=== PATIENT | female | born 1970 | race Caucasian/White ===

== ENCOUNTER 2021-06-11 18:00 | Inpatient (IN) ==
[2021-06-11] MEDS ORDERED: cefTRIAXone SODIUM 2,000 MG/70 ML BAG IV STA (18:50)
[2021-06-11] MEDS ORDERED: SODIUM CHLORIDE 0.9% 1000ML 1,000 ML IV ONE (18:50)
--- NOTE | 2021-06-11 19:08 | Emergency Department Note ---
Impression & Plan Tenosynovitis of finger, Cellulitis of right middle finger, Open wound of finger with complication ED Provider Note CHIEF COMPLAINT: Right middle finger infection HISTORY OF PRESENTING ILLNESS: This is a 51-year-old female who presents to the emergency department by private vehicle with concern for worsening infection of her right middle finger. The patient was evaluated in the emergency department yesterday for the same injury and was started on antibiotics. Patient states that she slipped on ice and cut the finger on a tin can while taking out the recycling about 3 days ago. She notes that she was initially soaking the finger and Epson salts, but started to notice swelling and pain yesterday and was evaluated for this. She states she has been taking the Keflex and Bactrim as prescribed but she feels that the finger is "getting worse by the hour." She states that the pain and swelling have significantly increased, the redness seems to be spreading up the finger, and she is unable to bend or straighten the finger normally, which she previously was able to do. She currently rates her pain 8/10. She has taken tramadol for the pain with some improvement. She notes that there has been some pus discharge from the wound. She denies any fevers or chills. She is right-hand dominant. She denies taking any blood thinner medications. She reports that she last ate solid food today around 1:30 PM and had a bottle of water around 5 PM. The patient does note that her te tanus is not up-to-date and she previously refused tetanus vaccination yesterday. The patient notes that her tetanus is not up-to-date, and she declines tetanus booster at this time. REVIEW OF SYSTEMS: A complete 10 point review of systems was reviewed with the patient with pertinent positives and negatives as per history of present illness. All else were negative. PAST MEDICAL HISTORY: Bipolar disorder, anxiety, depression, fibromyalgia, migraines, history of lumbar spine surgery SOCIAL HISTORY: Lives at home, she is a current everyday smoker ALLERGIES: No known allergies PHYSICAL EXAM: CONSTITUTIONAL: Pleasant and cooperative. Nontoxic-appearing and in no acute distress. Well appearing and well nourished. HEENT: Normocephalic, atraumatic. PERRL, EOMI. NECK: Supple, full active range of motion without discomfort. RESPIRATORY: Clear to auscultation bilaterally with no wheezing, crackles, rhonchi or stridor. Equal expansion bilaterally. CARDIOVASCULAR: Regular rate and rhythm with no murmurs, rubs or gallops. Normal peripheral perfusion. No edema. GASTROINTESTINAL: Soft, nontender, nondistended. No palpable masses or HSM. Bowel sounds present in all quadrants. MUSCULOSKELETAL: There is significant diffuse swelling and erythema noted to the right middle finger. Most swollen and tender around the right DIP joint which is in a position of mild to moderate flexion and the patient is unable to straighten it. There is an open wound noted on the dorsal aspect overlying the DIP joint which measures approximately 1.5 cm in length. There is swelling and fluctuance over both the DIP and PIP joints. Patient has minimal active flexion and is unable to extend the finger of the finger on exam. Increased pain with passive flexion and extension. No lymphangitic streaking. INTEGUMENTARY: No rash or other significant dermatologic conditions noted. NEUROLOGIC: Alert and oriented X 4 with normal affect. Normal strength and sensation in all 4 extremities. Normal speech. Normal gait observed. ED COURSE AND MEDICAL DECISION MAKING: CC: Patient presenting with complaint of right finger infection DIFFERENTIAL DIAGNOSIS: Includes, but not limited to cellulitis, abscess, wound infection, MRSA, tenosynovitis, osteomyelitis, retained foreign body, sepsis, among others. INTERPRETATION OF LABS: No leukocytosis, no anemia, normal platelets, no significant electrolyte abnormalities, normal renal function, normal liver enzymes. ESR within normal limits, CRP significantly elevated. MEDICATION RECONCILIATION: I attest that I have personally reviewed the patient's current medication list. INITIAL VITAL SIGNS REVIEW: I reviewed the patient's initial vital signs and interpret them as follows: T: Afebrile; BP: Mildly hypertensive; HR: Within normal limits; RR: Within normal limits; Pulse Ox: Within normal limits on room air. MDM SUMMARY: Patient was evaluated at bedside, history and physical exam performed. Patient is alert and oriented, in no acute distress, resting calmly in stretcher. She is afebrile and nontoxic-appearing and does not appear to be in significant pain. There is significant circumferential swelling and erythema of the right middle finger, most swollen over the distal portion of the finger and the DIP joint with the finger and partially flexed position. Patient has significant pain with passive flexion or extension of the finger. There is an open wound over the DIP joint on the dorsal aspect concerning for extensor and tendon involvement. Orders were placed for labs including inflammatory markers, IV fluid bolus for hydration, IV ceftriaxone 2 g for antibiotic coverage, and x-ray of the right middle finger. Patient declined anything for pain at this time. The patient reports that her tetanus is not up-to-date, and she declines tetanus booster today. Patient discussed with Dr. Mandel, who agrees with my assessment, plan, and disposition. Labs and imaging reviewed, no leukocytosis, but CRP is significantly elevated. X-ray shows progressive worsening of soft tissue swelling with no evidence of underlying osteomyelitis. Given the rapid progression of the patient's finger infection in spite of being treated with antibiotics, I did feel that she warranted orthopedic evaluation. I spoke on the phone with Dr. Weems and Dr. Leija, they both felt that the patient should be transferred to a tertiary care center, as there is no hand specialist on this weekend and they felt the patient would benefit from a hand specialist for definitive management. I spoke with the patient regarding my discussion with the orthopedic surgeons and she prefers to be transferred to [facility] in [place]. I spoke on the phone with Dr. Crook, orthopedic surgeon at [facility] in [place], she felt that transfer of this patient would be an appropriate and that the patient should be able to be managed by our surgeons here. She was happy to speak with her orthopedic surgeon to discuss why they felt the patient needed to be transferred. I spoke again on the phone with Dr. Weems, who plans to admit the patient and his fellow, Dr. Hilton, is coming to evaluate the patient and do the admission. He did request that I add on IV Zosyn, which was ordered, and we are keeping the patient n.p.o. for now. Patient reports that her pain is worsening and she would like something for pain now, she was ordered IV morphine. The patient has otherwise remained afebrile and nontoxic-appearing and was stable at the time of admission. The chart was completed utilizing [employer] Speech voice recognition software. Grammatical errors, random word insertions, pronoun errors, and incomplete sentences are an occasional consequence of this system due to software limitations, ambient noise, and hardware issues. Any formal questions or concerns about the content, text, or information contained within the body of this dictation should be directly addressed to the nurse practitioner for clarification. Past Med/Surg History Medical History Anxiety and depression Back pain with history of spinal surgery Bipolar 1 disorder Bruxism (teeth grinding) Bulging discs Chronic low back pain Chronic SI joint pain Degenerative disc disease Fibromyalgia History of migraine OCD (obsessive compulsive disorder) Osteoarthritis Osteoporosis Palpitations PTSD (post-traumatic stress disorder) Radiculitis Witnessed apneic spells witnessed sleep apnea but pt has not been tested Surgical History History of back surgery x 2 History of x2 History of D&C History of tubal ligation Family History Other No family history of adverse response to anesthesia Social History Smoking Status: Current every day smoker Tobacco Type: Cigarettes Cigarettes Per Day: 1 ppd; Second Hand Exposure: No; Hx Alcohol Use: Yes Alcohol type: beer Hx Substance Use: No Preferred Language: Puerto Rican Communication Ability: Effective 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 Beliefs That Will Affect Care: None Current Living Situation: Alone Feels Safe at Home: Yes Assistive Devices: None Allergies Allergies Allergy/AdvReac Type Severity Reaction Status Date / Time No Known Allergies Allergy Unverified 03/25/21 09:42 Home Meds Home Medications Medication Instructions Recorded Confirmed ibuprofen 200 mg tablet 200 mg PO Q6H PRN 12/08/20 03/25/21 baclofen 10 mg tablet 10 mg PO TID PRN 02/26/21 03/25/21 duloxetine 60 mg capsule,delayed 60 mg PO QAM 02/26/21 03/25/21 release (Cymbalta) gabapentin 300 mg capsule 600 mg PO TID cap 03/25/21 03/25/21 garlic 300 mg capsule 300 mg PO DAILY 03/25/21 03/25/21 omega-3 fatty acids 1,000 mg 1,000 mg PO DAILY 03/25/21 03/25/21 capsule (Fish Oil Concentrate) vitamin E 200 unit capsule 200 unit PO DAILY 03/25/21 03/25/21 Previous Rx's Medication Instructions Recorded cyclobenzaprine 10 mg tablet 10 mg PO TID PRN #10 tab 12/08/20 cephalexin 500 mg tablet 500 mg PO Q6H 10 Days #40 tab 06/10/21 sulfamethoxazole 800 1 tab PO Q12H #20 tab 06/10/21 mg-trimethoprim 160 mg tablet (Bactrim DS) tramadol 50 mg tablet 25 mg PO Q8H PRN #5 tab 06/10/21 Results & Data (ED) Vital Signs Vital Signs - 24 hr 06/11/21 18:12 06/11/21 18:32 06/11/21 20:50 Temperature 36.3 C L Temperature Source Temporal Artery Scan Pulse Rate 93 H Pulse Rate [Finger] 80 Respiratory Rate 18 16 Respiratory Depth Normal Blood Pressure 145/88 H Blood Pressure Mean 107 Blood Pressure Position Sitting Pulse Oximetry 94 95 Oxygen Delivery Method Room Air Room Air Sepsis Recent Fever Within 48 Hours No Sepsis New/Unexplained Change in Mental Status No Sepsis Action Taken by Nursing No Action Required Laboratory Data Result diagrams: 06/11/21 19:07 06/11/21 19:07 Lab Results 06/11/21 06/11/21 06/11/21 Range/Units 19:07 19:07 19:07 WBC 8.61 (4.8-10.8) K/uL RBC 3.90 L (4.2-5.4) M/uL Hgb 12.4 (12.0-16.0) g/dL Hct 36.6 L (37-47) % MCV 93.8 (80-100) fL MCH 31.8 (25-34) pg MCHC 33.9 (32-36) g/dL RDW Std Deviation 45.0 (36.4-46.3) fL RDW Coeff of Medardo 13.1 (11.5-14.5) % Plt Count 284 (130-400) K/uL MPV 9.1 (7.4-10.4) fL Immature Gran % (Auto) 0.1 % Neut % (Auto) 61.7 % Lymph % (Auto) 28.7 % Grady % (Auto) 7.0 % Eos % (Auto) 2.3 % Baso % (Auto) 0.2 % Neut # (Auto) 5.31 (1.4-6.5) K/uL Lymph # (Auto) 2.47 (1.2-3.4) K/uL Grady # (Auto) 0.60 H (0.11-0.59) K/uL Eos # (Auto) 0.20 (0-0.5) K/uL Baso # (Auto) 0.02 (0-0.2) K/uL Immature Gran # (Auto) 0.01 (0.00-0.02) K/uL ESR 24 (0-30) mm/hr Sodium (136-145) mmol/L Potassium (3.5-5.1) mmol/L Chloride (98-107) mmol/L Carbon Dioxide (21-32) mmol/L Anion Gap (3-11) BUN (6-23) mg/dl Creatinine (0.6-1.2) mg/dl Est Cr Clr Drug Dosing ml/min Est GFR ( Amer) ml/min Est GFR (Non-Af Amer) ml/min BUN/Creatinine Ratio (10-20) Glucose (70-99(Fasting)) mg/dl Calcium (8.5-10.1) mg/dl Total Bilirubin (0.2-1.0) mg/dl AST (13-39) U/L ALT (7-52) U/L Alkaline Phosphatase (34-104) U/L C-Reactive Protein 10.24 H (0-0.5) mg/dl Total Protein (6.0-8.3) gm/dl Albumin (3.4-5.0) gm/dl Globulin (2.5-4.0) gm/dl Albumin/Globulin Ratio (0.9-2) 06/11/21 Range/Units 19:07 WBC (4.8-10.8) K/uL RBC (4.2-5.4) M/uL Hgb (12.0-16.0) g/dL Hct (37-47) % MCV (80-100) fL MCH (25-34) pg MCHC (32-36) g/dL RDW Std Deviation (36.4-46.3) fL RDW Coeff of Medardo (11.5-14.5) % Plt Count (130-400) K/uL MPV (7.4-10.4) fL Immature Gran % (Auto) % Neut % (Auto) % Lymph % (Auto) % Grady % (Auto) % Eos % (Auto) % Baso % (Auto) % Neut # (Auto) (1.4-6.5) K/uL Lymph # (Auto) (1.2-3.4) K/uL Grady # (Auto) (0.11-0.59) K/uL Eos # (Auto) (0-0.5) K/uL Baso # (Auto) (0-0.2) K/uL Immature Gran # (Auto) (0.00-0.02) K/uL ESR (0-30) mm/hr Sodium 137 (136-145) mmol/L Potassium 3.6 (3.5-5.1) mmol/L Chloride 105 (98-107) mmol/L Carbon Dioxide 25 (21-32) mmol/L Anion Gap 7 (3-11) BUN 10 (6-23) mg/dl Creatinine 0.75 (0.6-1.2) mg/dl Est Cr Clr Drug Dosing 74.4 ml/min Est GFR ( Amer) 107.7 ml/min Est GFR (Non-Af Amer) 92.9 ml/min BUN/Creatinine Ratio 13.3 (10-20) Glucose 73 (70-99(Fasting)) mg/dl Calcium 9.0 (8.5-10.1) mg/dl Total Bilirubin 0.4 (0.2-1.0) mg/dl AST 31 (13-39) U/L ALT 32 (7-52) U/L Alkaline Phosphatase 74 (34-104) U/L C-Reactive Protein (0-0.5) mg/dl Total Protein 7.1 (6.0-8.3) gm/dl Albumin 4.1 (3.4-5.0) gm/dl Globulin 3.0 (2.5-4.0) gm/dl Albumin/Globulin Ratio 1.4 (0.9-2) Administered Medications Discontinued Medications Ceftriaxone Sodium (Rocephin) 2,000 mg in 70 mls @ 140 mls/hr IV NOW STA Stop: 06/11/21 19:19 Last Infusion: 06/11/21 20:05 Dose: 0 mls/hr Documented by: [id number] Admin: 06/11/21 19:13 Dose: 140 mls/hr Documented by: [id number] Sodium Chloride (Nss 1000ml) 1,000 mls @ 999 mls/hr IV .Q1H1M ONE Stop: 06/11/21 19:50 Last Infusion: 06/11/21 20:05 Dose: 0 mls/hr Documented by: [id number] Admin: 06/11/21 19:14 Dose: 999 mls/hr Documented by: [id number] Piperacillin Sod/Tazobactam Sod (Zosyn) 4.5 gm in 120 mls @ 240 mls/hr IV NOW ONE Stop: 06/11/21 21:00 Last Admin: 06/11/21 20:48 Dose: 240 mls/hr Documented by: [id number] Morphine Sulfate (Morphine Sulfate 4 Mg/Ml 1 Ml Carp\\Vial) 4 mg IV NOW STA Stop: 06/11/21 20:41 Last Admin: 06/11/21 20:48 Dose: 4 mg Documented by: [id number] Ondansetron HCl (Ondansetron Inj 2 Mg/Ml 2 Ml Vial) 4 mg IV NOW STA Stop: 06/11/21 20:41 Last Admin: 06/11/21 20:48 Dose: 4 mg Documented by: [id number] Imaging Data Radiologist's Impression: Finger X-Ray 06/11/21 18:50 XR finger(s) RT min 2V HISTORY: 51 years-old Female right middle finger infection acute pain with soft tissue swelling of the right third finger COMPARISON: Finger radiographs 06/10/2021 TECHNIQUE: 3 views of the right third finger FINDINGS: There is progressively worsened soft tissue swelling of the third finger. Skin irregularity of the distal finger suggests laceration. Mild flexion of the DIP joint. No acute fracture, dislocation or opaque foreign body. Mild osteoarthritis. IMPRESSION: Progressively worsened soft tissue swelling without acute osseous abnormality. ACT 112: Negative or not required by law. The above report was generated using voice recognition software. It may contain grammatical, syntax or spelling errors. Electronically signed by: Julio White M.D. 06/11/2021 7:27 PM Discharge Plan Visit Data Chief Complaint: Wound Stated Complaint: LAC ON MIDDLE FINGER ED Provider: Terrance Mandel ED Midlevel Provider: Mishel Joiner Discharge Problem: Tenosynovitis of finger, Cellulitis of right middle finger, Open wound of finger with complication Patient Disposition: Being Evaluated by Surgeon Condition: Good Forms Stand Alone Forms: [employer] Prescriptions Prescriptions: No Action omega-3 fatty acids [Fish Oil Concentrate] 1,000 mg capsule 1,000 mg PO DAILY RF: 0 vitamin E 200 unit capsule 200 unit PO DAILY RF: 0 garlic 300 mg capsule 300 mg PO DAILY RF: 0 cephalexin 500 mg tablet 500 mg PO Q6H 10 Days Qty: 40 RF: 0 sulfamethoxazole-trimethoprim [Bactrim DS] 800-160 mg tablet 1 tab PO Q12H Qty: 20 RF: 0 tramadol 50 mg tablet 25 mg PO Q8H PRN (Reason: pain) Qty: 5 RF: 0 ibuprofen 200 mg Tablet 200 mg PO Q6H PRN (Reason: Pain) RF: 0 cyclobenzaprine 10 mg tablet 10 mg PO TID PRN (Reason: muscle spasm) Qty: 10 RF: 0 gabapentin 300 mg capsule 600 mg PO TID RF: 0 baclofen 10 mg Tablet 10 mg PO TID PRN (Reason: Muscle Spasm) RF: 0 duloxetine [Cymbalta] 60 mg Capsule,Delayed Release(Dr/Ec) 60 mg PO QAM RF: 0 Referrals Referrals: Adriana Osullivan PA-C [Primary Care Provider] - Discharge Problem: Open wound of finger with complication Qualifiers: Encounter type: initial encounter Qualified Code(s): S61.209A - Unspecified open wound of unspecified finger without damage to nail, initial encounter
[2021-06-11 19:18] LABS: Basophils # (auto) 0.02 K/uL (0-0.2); Basophils % (auto) 0.2 %; Eosinophils % (auto) 2.3 %; Hematocrit (blood only) 36.6 % (37-47); Hemoglobin 12.4 g/dL (12.0-16.0); Immature Granulocytes # (auto) 0.01 K/uL (0.00-0.02); Immature Granulocytes % (auto) 0.1 %; Lymphocytes # (auto) 2.47 K/uL (1.2-3.4); Lymphocytes % (auto) 28.7 %; Mean Corpuscular Hemoglobin 31.8 pg (25-34); Mean Corpuscular Hgb Conc 33.9 g/dL (32-36); Mean Corpuscular Volume 93.8 fL (80-100); Mean Platelet Volume 9.1 fL (7.4-10.4); Neutrophils # (auto) 5.31 K/uL (1.4-6.5); Neutrophils % (auto) 61.7 %; Platelet Count 284 K/uL (130-400); RDW Coefficient of Variation 13.1 % (11.5-14.5); White Blood Count 8.61 K/uL (4.8-10.8)
--- NOTE | 2021-06-11 19:28 | XRay Report ---
XR finger(s) RT min 2V HISTORY: 51 years-old Female right middle finger infection acute pain with soft tissue swelling of t he right third finger COMPARISON: Finger radiographs 06/10/2021 TECHNIQUE: 3 views of the right third finger FINDINGS: There is progressively worsened soft tissue swelling of the third finger. Skin irregularity of the di stal finger suggests laceration. Mild flexion of the DIP joint. No acute fracture, dislocation or opa que foreign body. Mild osteoarthritis. IMPRESSION: Progressively worsened soft tissue swelling without acute osseous abnormality. ACT 112: Negative or not required by law. The above report was generated using voice recognition software. It may contain grammatical, syntax o r spelling errors. Electronically signed by: Julio White M.D. 06/11/2021 7:27 PM
[2021-06-11 19:56] LABS: Albumin Globulin Ratio 1.4 (0.9-2); Albumin Level 4.1 gm/dl (3.4-5.0); BUN Creatinine Ratio 13.3 (10-20); Bilirubin,Total 0.4 mg/dl (0.2-1.0); Creatinine Clr Calc Pharmacy 74.4 ml/min; Est GFR (African American) 107.7 ml/min; Est GFR (Non-African American) 92.9 ml/min; Potassium 3.6 mmol/L (3.5-5.1); Total Protein 7.1 gm/dl (6.0-8.3)
[2021-06-11] MEDS ORDERED: PIPERACILLIN/TAZOBACTAM 4.5 GM/120 ML BAG IV ONE (20:31)
[2021-06-11] MEDS ORDERED: PIPERACILL/TAZOBAC CONSULT ACTIVE PRN (20:31)
[2021-06-11] MEDS ORDERED: MoRPHine SULFATE 4 MG/ML 1 ML CARP\\VIAL IV STA (20:40)
[2021-06-11] MEDS ORDERED: ONDANSETRON INJ 2 MG/ML 2 ML VIAL IV STA (20:40)
[2021-06-11] MEDS ORDERED: VANCOMYCIN CONSULT ACTIVE PRN (21:12)
[2021-06-11] MEDS ORDERED: VANCOMYCIN HCL 1,250 MG in SODIUM CHLORIDE 0.9% 500 ML IV ONE (21:12)
--- NOTE | 2021-06-11 21:15 | Emergency Department Note ---
ED Visit Note Physician Evaluation Note: Patient was seen in conjunction with the physician clinical data assistant. Please see the physician clinical data assistant note for full details of the visit. I have personally evaluated and examined this patient. I performed a substantive portion of the patient visit including medical decision making and interpretation of diagnostic studies. On my examination the patient is in no acute distress, she does present with fusiform swelling of the third digit of the right hand, she experienced an injury to the distal aspect of the digit 2 nights ago. Orthopedics was consulted as there is concern for tenosynovitis, plan at this point will be to admit the patient to the orthopedic service of Dr. Bunch for IV antibiotics and washout procedure tomorrow morning. Patient was given IV ceftriaxone, IV Zosyn, and IV vancomycin here in the ED. She was started on maintenance fluids and made n.p.o. Preliminary plan will be for washout/operative procedure tomorrow morning. Patient was admitted in stable condition. I agree with assessment and plan of MAYANK Elizabeth DO . : Open wound of finger with complication Qualifiers: Encounter type: initial encounter Qualified Code(s): S61.209A - Unspecified open wound of unspecified finger without damage to nail, initial encounter
--- NOTE | 2021-06-11 21:54 | Orthopedic Consultation ---
Date of Consultation June 11, 2021 History of Present Illness Reason for Consultation: Right middle finger infection Allergies Allergy/AdvReac Type Severity Reaction Status Date / Time No Known Allergies Allergy Unverified 03/25/21 09:42 Home Medications Medication Instructions Recorded Confirmed Type cyclobenzaprine 10 mg tablet 10 mg PO TID PRN #10 tab 12/08/20 03/25/21 Rx ibuprofen 200 mg tablet 200 mg PO Q6H PRN 12/08/20 03/25/21 History baclofen 10 mg tablet 10 mg PO TID PRN 02/26/21 03/25/21 History duloxetine 60 mg capsule,delayed 60 mg PO QAM 02/26/21 03/25/21 History release (Cymbalta) gabapentin 300 mg capsule 600 mg PO TID cap 03/25/21 03/25/21 History garlic 300 mg capsule 300 mg PO DAILY 03/25/21 03/25/21 History omega-3 fatty acids 1,000 mg 1,000 mg PO DAILY 03/25/21 03/25/21 History capsule (Fish Oil Concentrate) vitamin E 200 unit capsule 200 unit PO DAILY 03/25/21 03/25/21 History cephalexin 500 mg tablet 500 mg PO Q6H 10 Days #40 tab 06/10/21 Rx sulfamethoxazole 800 1 tab PO Q12H #20 tab 06/10/21 Rx mg-trimethoprim 160 mg tablet (Bactrim DS) tramadol 50 mg tablet 25 mg PO Q8H PRN #5 tab 06/10/21 Rx Patient History Medical History Anxiety and depression Back pain with history of spinal surgery Bipolar 1 disorder Bruxism (teeth grinding) Bulging discs Chronic low back pain Chronic SI joint pain Degenerative disc disease Fibromyalgia History of migraine OCD (obsessive compulsive disorder) Osteoarthritis Osteoporosis Palpitations PTSD (post-traumatic stress disorder) Radiculitis Witnessed apneic spells witnessed sleep apnea but pt has not been tested Surgical History History of back surgery x 2 History of x2 History of D&C History of tubal ligation Family History Other No family history of adverse response to anesthesia Social History Smoking Status: Current every day smoker Tobacco Type: Cigarettes Cigarettes Per Day: 1 ppd; Second Hand Exposure: No; Hx Alcohol Use: Yes Alcohol type: beer Hx Substance Use: No Preferred Language: Sami Communication Ability: Effective 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
[2021-06-11] MEDS ORDERED: SODIUM CHLORIDE 0.9% 1000ML 1,000 ML IV SCH (22:00)
--- NOTE | 2021-06-11 22:17 | Orthopedic Consultation ---
Date of Consultation June 11, 2021 Assessment & Plan (1) Open wound of finger with complication: I discussed with the patient all therapeutical options considering the worsening of the clinical situation and we agreed for the following plan. She will be admitted in the hospital and she will start IV ampicillin/sulbactam. She will be NPO from midnight and we will proceed with surgical debridement tomorrow morning (Incision and Drainage Right Middle Finger). Supervising Physician Co-Signing Physician Notes I saw and examined patient and agree with above note. History of Present Illness Reason for Consultation: Right middle finger infection Attending Physician: Dr. Weems History of Present Illness Mindy is a pleasant 51-year-old female who presents to the ED for a worsening infection of her right middle finger. The patient was evaluated in the emergency department yesterday for the same injury and was started on antibiotics. She slipped on ice and cut the finger on a tin can about 3 days ago. After 1 day she started to notice swelling and pain that became worst over the next hours. For this reason she went to the ED yesterday. She has been taking the Keflex and Bactrim as prescribed but she feels that the finger is ge tting worse. She states that the pain, swelling and redness have significantly increased, and she is unable to bend or straighten the finger normally, which she previously was able to do. She currently rates her pain 8/10. She has taken tramadol for the pain with some improvement. She denies any fevers or chills. She is right-hand dominant. She denies taking any blood thinner medications. The patient does note that her tetanus is not up-to-date and she previously refused tetanus vaccination yesterday. Allergies Allergy/AdvReac Type Severity Reaction Status Date / Time No Known Allergies Allergy Unverified 03/25/21 09:42 Home Medications Medication Instructions Recorded Confirmed Type cyclobenzaprine 10 mg tablet 10 mg PO TID PRN #10 tab 12/08/20 03/25/21 Rx ibuprofen 200 mg tablet 200 mg PO Q6H PRN 12/08/20 03/25/21 History baclofen 10 mg tablet 10 mg PO TID PRN 02/26/21 03/25/21 History duloxetine 60 mg capsule,delayed 60 mg PO QAM 02/26/21 03/25/21 History release (Cymbalta) gabapentin 300 mg capsule 600 mg PO TID cap 03/25/21 03/25/21 History garlic 300 mg capsule 300 mg PO DAILY 03/25/21 03/25/21 History omega-3 fatty acids 1,000 mg 1,000 mg PO DAILY 03/25/21 03/25/21 History capsule (Fish Oil Concentrate) vitamin E 200 unit capsule 200 unit PO DAILY 03/25/21 03/25/21 History cephalexin 500 mg tablet 500 mg PO Q6H 10 Days #40 tab 06/10/21 Rx sulfamethoxazole 800 1 tab PO Q12H #20 tab 06/10/21 Rx mg-trimethoprim 160 mg tablet (Bactrim DS) tramadol 50 mg tablet 25 mg PO Q8H PRN #5 tab 06/10/21 Rx Patient History Medical History Anxiety and depression Back pain with history of spinal surgery Bipolar 1 disorder Bruxism (teeth grinding) Bulging discs Chronic low back pain Chronic SI joint pain Degenerative disc disease Fibromyalgia History of migraine OCD (obsessive compulsive disorder) Osteoarthritis Osteoporosis Palpitations PTSD (post-traumatic stress disorder) Radiculitis Witnessed apneic spells witnessed sleep apnea but pt has not been tested Surgical History History of back surgery x 2 History of x2 History of D&C History of tubal ligation Family History Other No family history of adverse response to anesthesia Social History Smoking Status: Current every day smoker Tobacco Type: Cigarettes Cigarettes Per Day: 5; Second Hand Exposure: No; Do You Dip or Chew Tobacco: No; Tobacco Cessation Education Requested by Patient: No Hx Alcohol Use: Yes Alcohol type: beer Hx Substance Use: No Preferred Language: Turkmen Communication Ability: Effective Commissary Clerk Required: No Beliefs That Will Affect Care: None Current Living Situation: Alone Feels Safe at Home: Yes Safety Concerns: Feels Safe At This Time Assistive Devices: None Physical Exam Musculoskeletal: Right hand: Diffuse swelling and erythema to the right middle finger starting 2 cm proximal to the DIP joint. 1,5 cm open wound noted on the dorsal aspect of the DIP joint with no exposure of tendon or bone. 20 degrees of flexion contrac ture of the DIP joint. Limited ROM due to the swelling and pain. Sensation of the middle figner intact. Good capillary refill. Results & Data ([facility]) Vital Signs (Past 12 Hours) Vital Signs Temp Pulse Pulse Resp BP Pulse Ox 06/11/21 20:50 80 95 06/11/21 18:32 16 06/11/21 18:12 36.3 C L 93 H 18 145/88 H 94 (1) Open wound of finger with complication Encounter type: initial encounter Qualified Code(s): S61.209A - Unspecified open wound of unspecified finger without damage to nail, initial encounter
[2021-06-11] MEDS ORDERED: oxyCODONE/ACETAMINOPHEN 5mg/325mg TAB PO PRN (22:22)
[2021-06-11] MEDS ORDERED: ONDANSETRON INJ 2 MG/ML 2 ML VIAL IV PRN (22:22)
[2021-06-11] MEDS ORDERED: AMPICILLIN IM SCH (22:30)
[2021-06-11] MEDS ORDERED: SULBACTAM SOD IM SCH (22:30)
[2021-06-11] MEDS ORDERED: ACETAMINOPHEN 500 MG TAB PO PRN (22:33)
[2021-06-11] MEDS: traMADol HCL 50 MG TABLET PO PRN (23:24)
[2021-06-11] MEDS ORDERED: ACETAMINOPHEN 500 MG TAB ONE (23:26)
[2021-06-12] MEDS: AMPICILLIN/SULBACTAM SOD 1,500 MG in 0.9 % SODIUM CHLORIDE 100 ML IV SCH ×4 (01:49→19:38)
[2021-06-12] MEDS ORDERED: GABAPENTIN 300 MG CAP PO ONE (02:10)
[2021-06-12] MEDS: IBUPROFEN 800 MG TAB PO PRN ×3 (02:41→21:29)
[2021-06-12] MEDS ORDERED: EPINEPHrine INJ 1 MG/ML AMP ONE (06:41)
[2021-06-12] MEDS ORDERED: BUPIVACAINE 0.5 % 5 MG/1 ML MPF 30ML VIAL ONE (06:41)
[2021-06-12] MEDS ORDERED: PROPOFOL IV EMULSION 10 MG/ML 20 ML VIAL IV ONE (06:57)
[2021-06-12] MEDS ORDERED: LIDOCAINE 2% 2 ML VIAL/AMP(20MG/ML) INFIL ONE (06:57)
[2021-06-12] MEDS ORDERED: fentaNYL citrate 100 MCG/2 ML VIAL ONE (06:57)
[2021-06-12] MEDS ORDERED: MIDAZOLAM HCL 1 MG/ML 2ML VIAL ONE (06:58)
--- NOTE | 2021-06-12 07:30 | Anesthesiology Consultation ---
Date of Service June 12, 2021 Assessment & Plan (1) Encounter for pre-operative examination: Chart Review Chart Review: Acceptable Risk for Surgery Consults Requested none ASA ASA2 Proposed Anesthesia Anesthesia Type: General Risk / Benefits Reviewed With: PT / POA / Parent / Guardian, Accepts Plan and Informed Consent Obtained History Surgery Operation Date: 06/12/21 07:30 Proposed Procedures p Incision and Drainage Right Index Finger(Right) - Segundo Weems MD Height/Weight Height: 5 ft 1 in Weight: 62.3 kg Allergies Allergy/AdvReac Type Severity Reaction Status Date / Time No Known Allergies Allergy Unverified 03/25/21 09:42 Medications Home Medications Medication Instructions Recorded Confirmed Last Taken cyclobenzaprine 10 mg tablet 10 mg PO TID PRN #10 tab 12/08/20 03/25/21 Unknown ibuprofen 200 mg tablet 200 mg PO Q6H PRN 12/08/20 03/25/21 12/08/20 09:00 800 mg baclofen 10 mg tablet 10 mg PO TID PRN 02/26/21 03/25/21 Unknown duloxetine 60 mg capsule,delayed 60 mg PO QAM 02/26/21 03/25/21 Unknown release (Cymbalta) gabapentin 300 mg capsule 600 mg PO TID cap 03/25/21 03/25/21 Unknown garlic 300 mg capsule 300 mg PO DAILY 03/25/21 03/25/21 Unknown omega-3 fatty acids 1,000 mg 1,000 mg PO DAILY 03/25/21 03/25/21 Unknown capsule (Fish Oil Concentrate) vitamin E 200 unit capsule 200 unit PO DAILY 03/25/21 03/25/21 Unknown cephalexin 500 mg tablet 500 mg PO Q6H 10 Days #40 tab 06/10/21 Unknown sulfamethoxazole 800 1 tab PO Q12H #20 tab 06/10/21 Unknown mg-trimethoprim 160 mg tablet (Bactrim DS) tramadol 50 mg tablet 25 mg PO Q8H PRN #5 tab 06/10/21 Unknown Active Medications Generic Name Dose Route Start Last Admin Trade Name Freq PRN Reason Stop Dose Admin Ampicillin Sodium/Sulbactam 104 mls @ 208 mls/hr 06/12/21 02:00 06/12/21 02:28 Sodium 1,500 mg/ Sodium IV 06/19/21 01:59 Infused Chloride Q6H JOANN Infusion Ibuprofen 800 mg 06/12/21 02:11 06/12/21 02:41 Ibuprofen 800 Mg Tab PO 07/12/21 02:10 800 mg TID PRN Administration Pain Tramadol HCl 25 mg 06/11/21 22:29 06/11/21 23:24 Tramadol Hcl 50 Mg Tablet PO 07/11/21 22:28 25 mg Q8H PRN Administration pain Past Medical History Medical History Anxiety and depression Back pain with history of spinal surgery Bipolar 1 disorder Bruxism (teeth grinding) Bulging discs Chronic low back pain Chronic SI joint pain Degenerative disc disease Fibromyalgia History of migraine OCD (obsessive compulsive disorder) Osteoarthritis Osteoporosis Palpitations PTSD (post-traumatic stress disorder) Radiculitis Witnessed apneic spells witnessed sleep apnea but pt has not been tested Exercise / Class Metabolic Activity II 4-5 Yardwork/Stairs/Walk up hill Past Family History Family History Other No family history of adverse response to anesthesia Past Surgical History Surgical History History of back surgery x 2 History of x2 History of D&C History of tubal ligation Past Anesthesia History No Hx of Anesthesia Complications and No Family Hx of Anesthesia Complications History of PONV No Hx of PONV and No Hx of Motion Sickness Social History Smoking Status: Current every day smoker tobacco type: cigarettes Smoking cigarettes per day: 5 Do You Dip or Chew Tobacco: No Hx Alcohol Use: Yes Alcohol type: beer alcohol intake frequency: a few times a week Hx Substance Use: No substance use type: does not use Physical Exam Vital Signs Last Vital Signs Temp 97.5 F L 06/11/21 23:50 Pulse 85 06/11/21 23:50 Resp 18 06/11/21 23:50 BP 121/75 06/11/21 23:50 Pulse Ox 95 06/11/21 23:50 ENMT Mouth: no dentition abnormality Thyromental Distance: > or= 3.5 Finger Breadths Mallampati Class: II Neck normal visual inspection Respiratory normal respiratory effort Auscultation: lungs clear to auscultation bilaterally Cardiovascular Rate/Rhythm: regular rate and regular rhythm Testing Laboratory Results 06/11/21 19:07 06/11/21 19:07
--- NOTE | 2021-06-12 07:32 | Orthopedic Progress Note ---
Date of Service June 12, 2021 Assessment & Plan (1) Infected finger: Plan: Proceed to OR this morning as planned. Readmit to floor after surgery for continued IV antibiotics. Admission and Anticipated Discharge Date Admission Date: June 11, 2021 Subjective Did OK overnight. No fevers/chills. Physical Exam Physical Exam: Unchanged from yesterday. Redness and purulent drainage R middle finger consistent with abscess. No apparent flexor tendon involvement. NVI Results & Data ([facility]) Vital Signs (Past 12 Hours) Vital Signs Temp Pulse Resp BP Pulse Ox 06/11/21 23:50 36.4 C L 85 18 121/75 95 06/11/21 23:34 83 18 97 06/11/21 22:16 88 97 06/11/21 20:50 80 95
[2021-06-12] MEDS ORDERED: ONDANSETRON INJ 2 MG/ML 2 ML VIAL IV PRN (08:22)
[2021-06-12] MEDS ORDERED: ePHEDrine sulfate 50 MG/ML AMP IV PRN (08:22)
[2021-06-12] MEDS ORDERED: ATROPINE SULFATE 0.1 MG/ML 10ML SYR IV PRN (08:22)
--- NOTE | 2021-06-12 09:06 | Operative Report ---
Post Operative Report Pre & Post Diagnosis Operation Date: 06/12/21 07:30 Pre-Op Diagnosis: Right Middle Finger Infection Open wound of finger with complication Post-Op Diagnosis: Right Middle Finger Septic arthritis of DIP joint, extensor tendon laceration, extensor tenosynovitis Open wound of finger with complication I identified the patient and participated in the time-out.: Yes Procedure Operation Date: 06/12/21 07:30 Actual Procedures p Incision and Drainage Right Middle Finger Septic Arthritis, Debridement of skin, tendon, and fascia to level of the bone and joint (Right) - Segundo Weems MD Surgeon Segundo Weems MD Housing Project Manager Yady James MD Estimated Blood Loss 5 Findings Consistent with Post-Op Diagnosis Specimens Superficial and deep cultures from the right middle finger Anesthesia Type General Complications none Indications 51-year-old female, [id number], reports she slipped on the ice 4 days ago on June 08, 2021 falling onto some recyclables, and a metal can cut the dorsal aspect of her index finger. She presented to the emergency room 2 days ago on June 10, 2021. X-rays were obtained at that time. She was given a dose of IV antibiotics and sent out on oral antibiotics. She returned to the emergency room yesterday with worsening swelling and redness in her finger. Purulent drainage was noted. Orthopedics was consulted for management. Patient was admitted to the hospital overnight started on IV antibiotics. Surgery was indicated to debride her wound. Should be noted that she had flexion deformity at her DIP joint with inability to actively extend her finger. Flexion was intact. No tenderness over the flexor tendon sheath. Swelling and redness was limited to the dorsal aspect of the long finger from the base of the nailbed to the PIP joint. After reviewing the risks and benefits of surgery, alternatives, and expected outcomes she elected to proceed. All questions were answered. Informed consent was signed. Also of note patient declined tetanus shot twice in the emergency room as well as during orthopedic consultation. Description of Procedure Patient was identified in the preoperative holding area where her surgical site was marked. She was brought back to main operating room she is placed the operative table and general anesthesia was administered. All bony promininces were padded. Perioperative antibiotics were held until cultures were obtained. She had been on intravenous Zosyn with the last dose of 2 AM approximately 6 hours before incision. She was then prepped and draped in usual sterile fashion. Prior to incision a multidisciplinary timeout was called. All in the room in agreement. We began by using tenotomy scissors to open up her laceration where there was a small pinpoint area of purulence. More purulence and bloody drainage came out through the wound immediately at this time. First set of cultures were then swabbed in the superficial tissues. We then explored the base of her laceration. We are able to visualize laceration of the extensor tendon through the skin laceration which was mostly transverse but slightly oblique from distal radial to proximal ulnar. The level of the laceration was just proximal to the DIP joint, and the the length of the laceration was approximately 2 cm. In order to improve our visualization of the extensor tendon we made 2 incisions, one dorsal radially and the second 1 dorsal ulnarly, extending proximal and distal to the laceration, so that her incisions combined with the laceration made an H shape on the dorsal aspect of the finger. Full-thickness skin flaps were raised above the level of the extensor tendon and the fascia. Small dorsal veins were cauterized which were crossing the surgical field. We were now more able to clearly visualize the extensor tendon laceration. This was a complete laceration right at the level of its insertion off the dorsal aspect of the distal phalanx. There was no tendon remaining attached to the distal phalanx. This meant that we could book down into her DIP joint where the cartilage fortunately was intact. There was some exposed bone where the tendon had been lacerated off the dorsal aspect of the distal phalanx. No gross contamination was visualized however. By bringing the DIP joint into full hyperextension we were able to roughly reapproximate the end of the tendon to the bone. Essentially this was a open mallet injury of her right long finger. At this point we took our second set of cultures from the DIP joint. We then debrided any nonviable tissue as well as some tenosynovium on the dorsal aspect of the extensor tendon. I elected not to attempt to repair of the extensor tendon because of the infection. Any sutures suture anchors or other foreign bodies would present a nidus for infection. Therefore we then began to irrigate out the wound with copious amounts normal saline. Total of 2 L was used. We then changed our gloves and began to close. We closed the skin only using 4-0 nylon sutures in interrupted fashion with simple and horizontal mattress sutures. No deep sutures were utilized again to avoid foreign bodies in the wound. I then gave her a digital block using 10 cc of half percent Marcaine without epinephrine to help with postoperative pain. The wound was then dressed with Xeroform 2 x 2's on the dorsal aspect of the finger and a Elvia wrap. An AlumaFoam splint was fashioned so as to hold the DIP joint in full terminal hyperextension in order to optimize the soft tissue coverage over the dorsal aspect of the DIP joint with her extensor tendon and facilitate healing. The splint was secured with a Coban. Patient was then awoke from anesthesia and transferred recovery room in stable condition. Postoperative course: Patient will be readmitted to the floor. We will resume her intravenous Zosyn and add vancomycin for broad-spectrum coverage. We will consult infectious diseases for assistance in managing her infection. Plan on leaving the dressing intact for 3 to 14 days. No DVT prophylaxis is indicated for the small upper extremity joint surgery. She will need a full 6 weeks of splinting with her DIP joint in full extension. I attest to the content of the Intraoperative Record and any orders documented therein. Any exceptions are noted below.
--- NOTE | 2021-06-12 09:09 | Operative Report ---
Post Operative Report Pre & Post Diagnosis Operation Date: 06/12/21 07:30 Pre-Op Diagnosis: Right Middle Finger Infection Open wound of finger with complication Post-Op Diagnosis: Right Middle Finger Infection Open wound of finger with complication I identified the patient and participated in the time-out.: Yes Procedure Operation Date: 06/12/21 07:30 Actual Procedures p Incision and Drainage Right Middle Finger(Right) - Segundo Weems MD Surgeon Delonte Weems MD Cutter Inspector Yady James MD Estimated Blood Loss 5 Findings Consistent with Post-Op Diagnosis Consistent with post op diagnosis Specimens Two sample for culture exam: 1 superficial skin culture sample 2 DIP joint culture sample Description of Procedure I participated in prepping dressing and assisted DR. Gaffney during the procedure. Please see Dr. Weems note. I attest to the content of the Intraoperative Record and any orders documented therein. Any exceptions are noted below. Supervising Physician Co-Signing Physician Notes Dr. Weems
[2021-06-12] MEDS ORDERED: ePHEDrine sulfate 50 MG/ML SYR ONE (09:11)
[2021-06-12] MEDS ORDERED: ONDANSETRON INJ 2 MG/ML 2 ML VIAL ONE (09:11)
[2021-06-12] MEDS: fentaNYL citrate 100 MCG/2 ML VIAL IV PRN ×3 (09:30→09:42)
[2021-06-12] MEDS ORDERED: VANCOMYCIN CONSULT ACTIVE PRN (09:37)
--- NOTE | 2021-06-12 09:42 | Anesthesiology Progress Note ---
Date of Service June 12, 2021 Anesthesia Post Procedure Vital Signs Vital Signs: Temp Pulse Pulse Pulse Resp BP BP 06/12/21 09:33 85 19 151/102 H 06/12/21 09:23 84 19 163/116 H 06/12/21 09:13 89 18 159/95 H 06/12/21 09:03 97.2 F L 82 18 166/97 H 06/11/21 23:50 97.5 F L 85 18 121/75 06/11/21 23:34 83 18 06/11/21 22:16 88 06/11/21 20:50 80 06/11/21 18:32 16 06/11/21 18:12 97.3 F L 93 H 18 145/88 H Pulse Ox 06/12/21 09:33 96 06/12/21 09:23 97 06/12/21 09:13 98 06/12/21 09:03 98 06/11/21 23:50 95 06/11/21 23:34 97 06/11/21 22:16 97 06/11/21 20:50 95 06/11/21 18:32 06/11/21 18:12 94 Pain Intensity Right Finger: Pain Intensity: 7 Transfer of Care Handoff Completed per policy Notes Mental Status: alert / awake / arousable and participated in evaluation Patient Amnestic to Procedure: Yes Nausea / Vomiting: adequately controlled Pain: adequately controlled Airway Patency, RR, SpO2: stable & adequate BP & HR: stable & adequate Hydration State: stable & adequate Anesthetic Complications: no major complications apparent and Pt Satisfied with anesthetic care
[2021-06-12] MEDS: HYDROmorphone INJ 0.5 MG/0.5 ML SYR IV PRN ×2 (10:15→22:29)
[2021-06-12] MEDS: GABAPENTIN 300 MG CAP PO SCH ×3 (10:19→21:30)
[2021-06-12] MEDS: DULoxetine HCL 60 MG CAP PO SCH (10:19)
--- NOTE | 2021-06-12 10:24 | Pharmacy Report ---
Pharmacy Vanc AUC Short Note - Date of Service June 12, 2021 - Assessment & Plan Assessment 51 year old F receiving Vancomycin for treatment of Septic arthritis of the right middle finger. Pertinent microbiologic data includes: Cultures pending. Pt fell on the ice and cut finger on metal. Was treated with a dose of iv abx and discharged on Bactrim DS. Pt returned to ED with worsening swelling and redness in the finer. Pt taken to the OR for wound debridement. Admitted for continued ABX treatment. Pt is afebrile and renal function is normal. Plan Vancomycin * AUC/ASMITA is the preferred PK/PD target for vancomycin * AUC guided dosing is effective and associated with decreased risk of nephrotoxicity compared to traditional trough targets * Vancomycin 1250mg IV x 1 dose followed by 1000mg IV Q12H projects a trough level of 17.3 mcg/mL and is predicted to achieve target AUC/ASMITA of 400-600 mg/L.hr and may be associated with a 13 % risk of nephrotoxicity * Trough level ordered for: 06/13/21 @ 1930. Pharmacy will continue to follow and will adjust dose/frequency as necessary. Thank you.
[2021-06-12] MEDS ORDERED: VANCOMYCIN HCL 1,250 MG in SODIUM CHLORIDE 0.9% 250 ML IV ONE (11:00)
[2021-06-12] MEDS: HYDROCODONE/ACETAMOPHEN 5/325MG TAB PO PRN ×2 (11:19→19:33)
[2021-06-12] MEDS: VANCOMYCIN HCL 1,000 MG in SODIUM CHLORIDE 0.9% 250 ML IV SCH (21:00)
[2021-06-13] MEDS: AMPICILLIN/SULBACTAM SOD 1,500 MG in 0.9 % SODIUM CHLORIDE 100 ML IV SCH ×4 (02:30→20:29)
[2021-06-13] MEDS: HYDROCODONE/ACETAMOPHEN 5/325MG TAB PO PRN ×3 (02:31→14:42)
[2021-06-13] MEDS: HYDROmorphone INJ 0.5 MG/0.5 ML SYR IV PRN ×3 (05:06→17:20)
[2021-06-13 06:20] LABS: Creatinine Clr Calc Pharmacy 81.4 ml/min; Est GFR (African American) 117.1 ml/min
[2021-06-13] MEDS: GABAPENTIN 300 MG CAP PO SCH ×3 (08:04→20:34)
[2021-06-13] MEDS: DULoxetine HCL 60 MG CAP PO SCH (08:04)
[2021-06-13] MEDS: IBUPROFEN 800 MG TAB PO PRN ×3 (08:05→20:34)
[2021-06-13] MEDS: VANCOMYCIN HCL 1,000 MG in SODIUM CHLORIDE 0.9% 250 ML IV SCH ×2 (08:32→23:28)
--- NOTE | 2021-06-13 10:42 | Orthopedic Progress Note ---
Date of Service June 13, 2021 Assessment & Plan (1) Infected finger: Plan: I discussed with the patient about the surgical procedure and the next steps in treatment. We agreed for the following plan. Continue post op observation with wound and neurovascular checks, elevate extremity and ice. Continue IV empiric antibiotic therapy until we get the cultures result with antibiotic sensibility Infectious Disease consult for optimization of antibiotic therapy CBC with Diff, CRP and ESR tomorrow morning Admission and Anticipated Discharge Date Admission Date: June 11, 2021 Subjective Post Op day 1. Patient had trouble to fall asleep for pain, [place] was not decreasing her pain to an acceptable level. After Dilaudid administration she noticed improvement in pain control and she was able to fall asleep at 3.50. Pt was complain that she felt the dressing was too tight. Right hand warm to touch, palpable pulses, good capillary refill in the 24 hours after surgery. Vitals normal, no fever or chills. Physical Exam Musculoskeletal: Right hand middle finger: Splint in place, dressing clean and tolerated at the moment not too tight. She states that pain is a little be better compared to yesterday. Neurovascular intact with good capillary refill. Results & Data ([facility]) Vital Signs (Past 12 Hours) Vital Signs Temp Pulse Resp BP Pulse Ox 06/13/21 03:44 36.5 C 90 20 125/78 94
[2021-06-13] MEDS: traMADol HCL 50 MG TABLET PO PRN (16:29)
[2021-06-13] MEDS ORDERED: VANCOMYCIN TROUGH ONE (19:30)
[2021-06-13] MEDS ORDERED: VANCOMYCIN HCL 1,500 MG in SODIUM CHLORIDE 0.9% 500 ML IV SCH (21:00)
[2021-06-13] MEDS: VANCOMYCIN HCL 1,500 MG in SODIUM CHLORIDE 0.9% 500 ML IV SCH (21:53)
[2021-06-14] MEDS: AMPICILLIN/SULBACTAM SOD 1,500 MG in 0.9 % SODIUM CHLORIDE 100 ML IV SCH ×2 (01:01→08:34)
[2021-06-14] MEDS: HYDROmorphone INJ 0.5 MG/0.5 ML SYR IV PRN ×3 (04:35→20:09)
[2021-06-14] MEDS: traMADol HCL 50 MG TABLET PO PRN (05:28)
[2021-06-14 06:36] LABS: Hematocrit (blood only) 38.5 % (37-47); Hemoglobin 13.2 g/dL (12.0-16.0); Mean Corpuscular Hemoglobin 32.8 pg (25-34); Mean Corpuscular Hgb Conc 34.3 g/dL (32-36); Mean Corpuscular Volume 95.5 fL (80-100); Mean Platelet Volume 9.4 fL (7.4-10.4); Platelet Count 296 K/uL (130-400); RDW Coefficient of Variation 13.2 % (11.5-14.5); RDW Standard Deviation 46.1 fL (36.4-46.3); Red Blood Count 4.03 M/uL (4.2-5.4)
[2021-06-14 07:03] LABS: Basophils # (auto) 0.02 K/uL (0-0.2); Basophils % (auto) 0.5 %; Eosinophils # (auto) 0.15 K/uL (0-0.5); Eosinophils % (auto) 3.9 %; Immature Granulocytes # (auto) 0.01 K/uL (0.00-0.02); Immature Granulocytes % (auto) 0.3 %; Monocytes # (auto) 0.35 K/uL (0.11-0.59); Monocytes % (auto) 9.2 %; Neutrophils # (auto) 1.37 K/uL (1.4-6.5); Neutrophils % (auto) 36.1 %
[2021-06-14 07:06] LABS: C Reactive Protein 3.52 mg/dl (0-0.5); Est GFR (African American) 120.6 ml/min; Est GFR (Non-African American) 104.1 ml/min
[2021-06-14] MEDS: HYDROCODONE/ACETAMOPHEN 5/325MG TAB PO PRN ×3 (08:30→23:18)
[2021-06-14] MEDS: GABAPENTIN 300 MG CAP PO SCH ×3 (08:30→20:06)
[2021-06-14] MEDS: DULoxetine HCL 60 MG CAP PO SCH (08:30)
[2021-06-14] MEDS: VANCOMYCIN HCL 1,500 MG in SODIUM CHLORIDE 0.9% 500 ML IV SCH (09:30)
--- NOTE | 2021-06-14 15:07 | Orthopedic Progress Note ---
Date of Service June 14, 2021 Assessment & Plan (1) Open wound of right middle finger: Plan: Patient was evaluated by the infectious disease earlier today. Switched her from IV Unasyn to vancomycin to IV Keflex. She will need PICC line placement and may possibly be discharged tomorrow on IV antibiotics for 6 weeks. She will need to follow-up at [facility] orthopedics in 2 weeks to have her sutures were removed. I will see her again tomorrow morning change her dressing again and if the PICC line is in place we will discharge her. Admission and Anticipated Discharge Date Admission Date: June 11, 2021 Subjective Patient is status post irrigation debridement of an surface of her right middle finger at the level of the DIP joint. Patient was initially on oral Bactrim and Keflex. Her infection continue to worsen so she came back to the emergency department on Monday evening. Her biggest complaint today is that she is not being provided with 13 supplements that she normally takes on a daily basis for her fibromyalgia. She also complains of severe lower back pain associated with previous lumbar spinal fusion and dysfunctional hardware. She wishes to be discharged as soon as possible. I advised her that infectious disease wants her to be on IV antibiotics for 6 weeks postoperatively and that she will need to h ave a PICC line placed. Currently she denies chest pain, shortness of breath, fever, chills, sweats, lethargy or numbness or tingling in her right middle finger. Review of Systems Review of Systems: All systems reviewed & are unremarkable except as noted in Subjective Physical Exam Physical Exam: Right middle finger: Dressing was removed. Sutures are intact over the dorsal surface of the right third PIP joint. There is mild edema and erythema. There is no discharge or ecchymosis. Patient is able to flex at the PIP and MCP joint. She has a slight flexed flexion contracture at the DIP joint. She is tender to palpation but is able to detect light sensation to touch over the pad of the digit. Results & Data ([facility]) Vital Signs (Past 12 Hours) Vital Signs Temp Pulse Resp BP Pulse Ox 06/14/21 12:09 149/105 H 06/14/21 08:40 36.4 C L 74 18 176/129 H 99 Laboratory Results Lab Results 06/11/21 06/11/21 06/11/21 Range/Units 19:07 19:07 19:07 WBC 8.61 (4.8-10.8) K/uL RBC 3.90 L (4.2-5.4) M/uL Hgb 12.4 (12.0-16.0) g/dL Hct 36.6 L (37-47) % MCV 93.8 (80-100) fL MCH 31.8 (25-34) pg MCHC 33.9 (32-36) g/dL RDW Std Deviation 45.0 (36.4-46.3) fL RDW Coeff of Medardo 13.1 (11.5-14.5) % Plt Count 284 (130-400) K/uL MPV 9.1 (7.4-10.4) fL Immature Gran % (Auto) 0.1 % Neut % (Auto) 61.7 % Lymph % (Auto) 28.7 % Bandera % (Auto) 7.0 % Eos % (Auto) 2.3 % Baso % (Auto) 0.2 % Neut # (Auto) 5.31 (1.4-6.5) K/uL Lymph # (Auto) 2.47 (1.2-3.4) K/uL Bandera # (Auto) 0.60 H (0.11-0.59) K/uL Eos # (Auto) 0.20 (0-0.5) K/uL Baso # (Auto) 0.02 (0-0.2) K/uL Immature Gran # (Auto) 0.01 (0.00-0.02) K/uL ESR 24 (0-30) mm/hr Sodium (136-145) mmol/L Potassium (3.5-5.1) mmol/L Chloride (98-107) mmol/L Carbon Dioxide (21-32) mmol/L Anion Gap (3-11) BUN (6-23) mg/dl Creatinine (0.6-1.2) mg/dl Est Cr Clr Drug Dosing ml/min Est GFR ( Amer) ml/min Est GFR (Non-Af Amer) ml/min BUN/Creatinine Ratio (10-20) Glucose (70-99(Fasting)) mg/dl Calcium (8.5-10.1) mg/dl Total Bilirubin (0.2-1.0) mg/dl AST (13-39) U/L ALT (7-52) U/L Alkaline Phosphatase (34-104) U/L C-Reactive Protein 10.24 H (0-0.5) mg/dl Total Protein (6.0-8.3) gm/dl Albumin (3.4-5.0) gm/dl Globulin (2.5-4.0) gm/dl Albumin/Globulin Ratio (0.9-2) Vancomycin Trough (10-20) mcg/ml SARS-CoV-2, RNA, NAAT (NEGATIVE) 06/11/21 06/11/21 06/13/21 Range/Units 19:07 20:51 05:25 WBC (4.8-10.8) K/uL RBC (4.2-5.4) M/uL Hgb (12.0-16.0) g/dL Hct (37-47) % MCV (80-100) fL MCH (25-34) pg MCHC (32-36) g/dL RDW Std Deviation (36.4-46.3) fL RDW Coeff of Medardo (11.5-14.5) % Plt Count (130-400) K/uL MPV (7.4-10.4) fL Immature Gran % (Auto) % Neut % (Auto) % Lymph % (Auto) % Bandera % (Auto) % Eos % (Auto) % Baso % (Auto) % Neut # (Auto) (1.4-6.5) K/uL Lymph # (Auto) (1.2-3.4) K/uL Bandera # (Auto) (0.11-0.59) K/uL Eos # (Auto) (0-0.5) K/uL Baso # (Auto) (0-0.2) K/uL Immature Gran # (Auto) (0.00-0.02) K/uL ESR (0-30) mm/hr Sodium 137 (136-145) mmol/L Potassium 3.6 (3.5-5.1) mmol/L Chloride 105 (98-107) mmol/L Carbon Dioxide 25 (21-32) mmol/L Anion Gap 7 (3-11) BUN 10 (6-23) mg/dl Creatinine 0.75 0.70 (0.6-1.2) mg/dl Est Cr Clr Drug Dosing 74.4 81.4 ml/min Est GFR ( Amer) 107.7 117.1 ml/min Est GFR (Non-Af Amer) 92.9 101.0 ml/min BUN/Creatinine Ratio 13.3 (10-20) Glucose 73 (70-99(Fasting)) mg/dl Calcium 9.0 (8.5-10.1) mg/dl Total Bilirubin 0.4 (0.2-1.0) mg/dl AST 31 (13-39) U/L ALT 32 (7-52) U/L Alkaline Phosphatase 74 (34-104) U/L C-Reactive Protein (0-0.5) mg/dl Total Protein 7.1 (6.0-8.3) gm/dl Albumin 4.1 (3.4-5.0) gm/dl Globulin 3.0 (2.5-4.0) gm/dl Albumin/Globulin Ratio 1.4 (0.9-2) Vancomycin Trough (10-20) mcg/ml SARS-CoV-2, RNA, NAAT NEGATIVE (NEGATIVE) 06/13/21 06/14/21 06/14/21 Range/Units 20:03 05:50 05:50 WBC 3.80 L (4.8-10.8) K/uL RBC 4.03 L (4.2-5.4) M/uL Hgb 13.2 (12.0-16.0) g/dL Hct 38.5 (37-47) % MCV 95.5 (80-100) fL MCH 32.8 (25-34) pg MCHC 34.3 (32-36) g/dL RDW Std Deviation 46.1 (36.4-46.3) fL RDW Coeff of Medardo 13.2 (11.5-14.5) % Plt Count 296 (130-400) K/uL MPV 9.4 (7.4-10.4) fL Immature Gran % (Auto) 0.3 % Neut % (Auto) 36.1 % Lymph % (Auto) 50.0 % Bandera % (Auto) 9.2 % Eos % (Auto) 3.9 % Baso % (Auto) 0.5 % Neut # (Auto) 1.37 L (1.4-6.5) K/uL Lymph # (Auto) 1.90 (1.2-3.4) K/uL Bandera # (Auto) 0.35 (0.11-0.59) K/uL Eos # (Auto) 0.15 (0-0.5) K/uL Baso # (Auto) 0.02 (0-0.2) K/uL Immature Gran # (Auto) 0.01 (0.00-0.02) K/uL ESR (0-30) mm/hr Sodium (136-145) mmol/L Potassium (3.5-5.1) mmol/L Chloride (98-107) mmol/L Carbon Dioxide (21-32) mmol/L Anion Gap (3-11) BUN (6-23) mg/dl Creatinine 0.64 (0.6-1.2) mg/dl Est Cr Clr Drug Dosing 89.0 ml/min Est GFR ( Amer) 120.6 ml/min Est GFR (Non-Af Amer) 104.1 ml/min BUN/Creatinine Ratio (10-20) Glucose (70-99(Fasting)) mg/dl Calcium (8.5-10.1) mg/dl Total Bilirubin (0.2-1.0) mg/dl AST (13-39) U/L ALT (7-52) U/L Alkaline Phosphatase (34-104) U/L C-Reactive Protein 3.52 H (0-0.5) mg/dl Total Protein (6.0-8.3) gm/dl Albumin (3.4-5.0) gm/dl Globulin (2.5-4.0) gm/dl Albumin/Globulin Ratio (0.9-2) Vancomycin Trough 7.4 L (10-20) mcg/ml SARS-CoV-2, RNA, NAAT (NEGATIVE) 06/14/21 Range/Units 05:50 WBC (4.8-10.8) K/uL RBC (4.2-5.4) M/uL Hgb (12.0-16.0) g/dL Hct (37-47) % MCV (80-100) fL MCH (25-34) pg MCHC (32-36) g/dL RDW Std Deviation (36.4-46.3) fL RDW Coeff of Medardo (11.5-14.5) % Plt Count (130-400) K/uL MPV (7.4-10.4) fL Immature Gran % (Auto) % Neut % (Auto) % Lymph % (Auto) % Bandera % (Auto) % Eos % (Auto) % Baso % (Auto) % Neut # (Auto) (1.4-6.5) K/uL Lymph # (Auto) (1.2-3.4) K/uL Bandera # (Auto) (0.11-0.59) K/uL Eos # (Auto) (0-0.5) K/uL Baso # (Auto) (0-0.2) K/uL Immature Gran # (Auto) (0.00-0.02) K/uL ESR 26 (0-30) mm/hr Sodium (136-145) mmol/L Potassium (3.5-5.1) mmol/L Chloride (98-107) mmol/L Carbon Dioxide (21-32) mmol/L Anion Gap (3-11) BUN (6-23) mg/dl Creatinine (0.6-1.2) mg/dl Est Cr Clr Drug Dosing ml/min Est GFR ( Amer) ml/min Est GFR (Non-Af Amer) ml/min BUN/Creatinine Ratio (10-20) Glucose (70-99(Fasting)) mg/dl Calcium (8.5-10.1) mg/dl Total Bilirubin (0.2-1.0) mg/dl AST (13-39) U/L ALT (7-52) U/L Alkaline Phosphatase (34-104) U/L C-Reactive Protein (0-0.5) mg/dl Total Protein (6.0-8.3) gm/dl Albumin (3.4-5.0) gm/dl Globulin (2.5-4.0) gm/dl Albumin/Globulin Ratio (0.9-2) Vancomycin Trough (10-20) mcg/ml SARS-CoV-2, RNA, NAAT (NEGATIVE)
[2021-06-14] MEDS: ceFAZolin 2000MG 2,000 MG/15 ML SYR IV SCH ×2 (16:01→23:09)
[2021-06-14] MEDS: IBUPROFEN 800 MG TAB PO PRN ×2 (16:03→23:19)
[2021-06-15 06:14] LABS: Creatinine Clr Calc Pharmacy 67.8 ml/min; Est GFR (African American) 93.9 ml/min
[2021-06-15] MEDS: ceFAZolin 2000MG 2,000 MG/15 ML SYR IV SCH ×2 (06:25→13:50)
[2021-06-15] MEDS: IBUPROFEN 800 MG TAB PO PRN (08:56)
[2021-06-15] MEDS: DULoxetine HCL 60 MG CAP PO SCH (08:56)
[2021-06-15] MEDS: GABAPENTIN 300 MG CAP PO SCH ×2 (08:56→13:50)
[2021-06-15] MEDS: HYDROCODONE/ACETAMOPHEN 5/325MG TAB PO PRN ×2 (08:56→14:46)
--- NOTE | 2021-06-16 08:26 | Discharge Summary ---
Date of Service June 16, 2021 Admission HPI Per Admitting Provider Mindy is a pleasant 51-year-old female who presents to the ED for a worsening infection of her right middle finger. The patient was evaluated in the emergency department yesterday for the same injury and was started on antibiotics. She slipped on ice and cut the finger on a tin can about 3 days ago. After 1 day she started to notice swelling and pain that became worst over the next hours. For this reason she went to the ED yesterday. She has been taking the Keflex and Bactrim as prescribed but she feels that the finger is getting worse. She states that the pain, swelling and redness have significantly increased, and she is unable to bend or straighten the finger normally, which she previously was able to do. She currently rates her pain 8/10. She has taken tramadol for the pain with some improvement. She denies any fevers or chills. She is right-hand dominant. She denies taking any blood thinner medications. The patient does note that her tetanus is not up-to-date and she previously refused tetanus vaccination yesterday. Admission Exam Per Admitting Provider Right hand: Diffuse swelling and erythema to the right middle finger starting 2 cm proximal to the DIP joint. 1,5 cm open wound noted on the dorsal aspect of the DIP joint with no exposure of tendon or bone. 20 degrees of flexion contracture of the DIP joint. Limited ROM due to the swelling and pain. Sensation of the middle figner intact. Good capillary refill. Principal Diagnosis Right Middle Finger Septic arthritis of DIP joint, extensor tendon laceration, extensor tenosynovitis Discharge Exam Right middle finger: Dressing was removed. Sutures are intact over the dorsal surface of the right third PIP joint. There is mild edema and erythema. There is no discharge or ecchymosis. Patient is able to flex at the PIP and MCP joint. She has a slight flexed flexion contracture at the DIP joint. She is tender to palpation but is able to detect light sensation to touch over the pad of the digit. Discharge Data Allergies Allergy/AdvReac Type Severity Reaction Status Date / Time No Known Allergies Allergy Unverified 03/25/21 09:42 Consultations 06/11/21 21:43 ED Decision to Admit Stat 06/13/21 10:18 Consult Infectious Diseases Routine Procedures Performed Operation Date: 06/12/21 07:30 Actual Procedures p Incision and Drainage Right Middle Finger(Right) - Segundo Weems MD Hospital Course (1) Open wound of right middle finger: Patient had PICC line placed and was discharged last night. Order/Rx for IV Ancef 1 gram TID for 6 weeks was sent to [facility]. She will also need weekly CBC and BMP done while on the ABX. She is scheduled for a 2 week follow up in our clinic for f/u and suture removal. Rx for Tramadol was sent her pharmacy this AM for pain control. She may also use OTC Motrin and Tylenol. Patient was evaluated by the infectious disease earlier today. Switched her from IV Unasyn to vancomycin to IV Ancef. She will need PICC line placement and may possibly be discharged tomorrow on IV antibiotics for 6 weeks. She will need to follow-up at [facility] orthopedics in 2 weeks to have her sutures were removed. I will see her again tomorrow morning change her dressing again and if the PICC line is in place we will discharge her. Total Time Total Time Spent Total Time Spent (In Minutes): 25 Mins Discharge Plan Discharge Items Patient Disposition: Home - Home Health Services Reason For Visit: RIGHT MIDDLE FINGER INFECTION Discharge Diagnosis: right middle finger infection Condition on Discharge: Good Activity: As commented below Lifting: Gradually increase as tolerated Bathing: Keep incision dry Sexual Activity: When tolerated Exercise/Sports: Wait until after follow-up appointment Driving/Machine Use: Resume 3 days after discharge Weightbearing: Right partial Weightbearing Comment: avoid grasping Non-emergency contact: Primary Care Provider Call non-emergency contact if: you have any medication questions, your pain is not controlled, your temperature is above 101.5, your wound has increased drainage and your wound pain has increased Follow-up/Referrals: Adriana Osullivan PA-C [Primary Care Provider] - Diet: Regular Addtl Attending Provider Instructions: Post-operative Instructions Dear Patient and Family/Friends, Before you are discharged from the hospital, it is important to know what to expect when you get home after surgery. To that end, we have created this sheet of discharge instructions which covers many commonly asked questions. Make sure you go through this sheet in its entirety with your nurse before you are discharged. Please note that we will go over the specifics of your surgery and recovery when you return for your first post-operative visit. Sincerely, Dr. Weems Pain Expect to be in a fair amount of pain after surgery. Remember, our goal is not to eliminate your pain, but to make it tolerable. It is a good idea to stay ahead of your pain by taking the medications you were prescribed once you get home. Typically, the pain starts improving 3-7 days after surgery. You should start weaning off the narcotic pain medication (oxycodone, hydrocodone, hydromorphone, morphine) as soon as your pain improves. Please call our office if your pain is not adequately controlled. Ice Ice your operative site at least 5 times a day for 15-30 minutes at a time. Make sure you have a thin cloth between the ice or cooling unit and your skin to prevent del rio bite. This is especially important if you received a nerve block. Continue icing your operative site for the first 5-7 days after surgery, then as needed. Diet/Nausea/Vomiting Start by drinking clear liquids and eating crackers. If you can tolerate this, then you may resume your normal diet. If you feel nauseated or vomit, take Zofran/ondansetron (if prescribed). Please call our office if you have intractable nausea or vomiting, or, if after hours, you may go to the Emergency Room for help. Constipation Constipation is a common side effect of narcotic pain medication. If you have not had a bowel movement within 2 days after surgery, we recommend purchasing an over the counter laxative such as Milk of Magnesia, Dulcolax, or Miralax from a local pharmacy, and taking it as instructed. Call our clinic if any questions. Weight bearing and Range of Motion. Do not bear any weight through your operative extremity immediately after surgery. If you had upper extremity surgery, do not lift anything with that arm. If you are in a knee brace, keep it locked in place until your follow-up. We will discuss your weight bearing, range of motion, and lifting restrictions in detail at your first post-operative appointment. Continuous Passive Motion (CPM) Machine If you were prescribed a CPM machine, it will start after your first post- operative appointment, at which time we will give you instructions on the range of motion settings and duration of treatment Physical therapy You will be given a prescription for physical therapy or occupational therapy at your first post-operative appointment. Typically, patients start therapy within 1 week of surgery Wound care and showering We will inspect your wound at your first post-operative visit, and may do a dressing change at that time. Most patients will be in a water-proof dressing that is removed 14 days after surgery. It is normal to see some dried blood on the dressing. Do not remove your dressing, paper strips or sutures yourself unless you are given permission. Showering is allowed the day after surgery. Do not scrub or remove any dressings. The wound should not be submerged underwater (i.e. in a bathtub or pool) until 4 weeks after surgery LAVELL stockings If you were given white stockings, these are to be worn at all times except to shower (on both legs) for the first 2 weeks after surgery. Driving You may not drive while taking narcotic pain medication or while in a cast, splint, sling or brace. You, the patient, need to make the final determination about when you are safe to drive, however, the earliest you may consider driving after surgery is below: Hand/Wrist/Elbow Surgery: 3 days Shoulder Surgery: 2 weeks Hip,/Knee/Ankle Surgery: 4 weeks Fracture repair: 6 weeks Return to Work Your return to work depends on what surgery was done and what type of work you do. Please bring any paperwork your employer needs completed to your first post-operative visit. Also, bring a description of your job duties, as this helps us to understand what risks you may face at work. Travel Avoid long distance travel (greater than 1 hour) in airplanes and cars for the first 6 weeks after surgery. If you must travel, you need to have a Doppler ult rasound done before you travel to rule out a blood clot in your legs. Follow-up You should have a follow-up appointment already scheduled 1-2 days after surgery. If not, please contact our office to make this appointment before you leave the hospital. When to call the office It is normal to have swelling and bruising in the limb that was operated on. This will improve with time. It is also normal to have fevers for the first 2 days after surgery. Reasons you should call your doctor include: Uncontrolled pain; Nausea, vomiting, or constipation that does not improve with medication; Fevers over 101.5, chills, sweats; Drainage or bleeding from the wound; Foul odor; Spreading areas of redness; Any other concerns Pending Studies at Discharge: No Stand-Alone Forms: My [facility], Smoking Cessation Medications and DC Order Prescriptions: New tramadol 50 mg tablet 50 mg PO Q6H Qty: 20 RF: 0 Continued omega-3 fatty acids [Fish Oil Concentrate] 1,000 mg capsule 1,000 mg PO DAILY RF: 0 vitamin E 200 unit capsule 200 unit PO DAILY RF: 0 garlic 300 mg capsule 300 mg PO DAILY RF: 0 cephalexin 500 mg tablet 500 mg PO Q6H 10 Days Qty: 40 RF: 0 sulfamethoxazole-trimethoprim [Bactrim DS] 800-160 mg tablet 1 tab PO Q12H Qty: 20 RF: 0 tramadol 50 mg tablet 25 mg PO Q8H PRN (Reason: pain) Qty: 5 RF: 0 ibuprofen 200 mg Tablet 200 mg PO Q6H PRN (Reason: Pain) RF: 0 cyclobenzaprine 10 mg tablet 10 mg PO TID PRN (Reason: muscle spasm) Qty: 10 RF: 0 gabapentin 300 mg capsule 600 mg PO TID RF: 0 baclofen 10 mg Tablet 10 mg PO TID PRN (Reason: Muscle Spasm) RF: 0 duloxetine [Cymbalta] 60 mg Capsule,Delayed Release(Dr/Ec) 60 mg PO QAM RF: 0 Discharge Orders: Discharge Order (Routine); Ordered 06/15/21 Ordered By: Freddy Espino/Other Patient Handouts: Caring for Your PICC Dc Admission Data Admit Date/Time: 06/11/21 22:22 Attending Provider: Segundo Weems Admit Provider: Segundo Weems Primary Care Provider: Adriana Osullivan Other Providers: Yady James ; Segundo Weems ; Wilian Robins ; Johnson Rangel ; Sanchez Figueroa I. ; Erasto Hopkins II ; Viktoriya Schmid ; Terrance Tyler ; Aleksandr Boykin ; [facility] Other Interventions: Discharge Summary Assessment (RN) Last Done: 06/15/21 16:42
== END 2021-06-15 18:18 | disposition home health service (06) | DRG 513 ==
LOC: ED 18:00 → 3E 22:22

== ENCOUNTER 2021-12-05 06:29 | Observation (INO) ==
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
[2021-12-05] MEDS ORDERED: LORazepam 1 MG TAB PO STA (07:12)
[2021-12-05 07:40] LABS: Appearance Urine Clear (Clear); Bilirubin Urine Negative (Negative); Blood Urine Negative (Negative); Color Urine Yellow; Glucose Urine UA Negative (Negative); Ketones Urine Negative (Negative); Leukocyte Esterase Urine Negative (Negative); Nitrite Urine Negative (Negative); Protein Urine Negative (Negative); Specific Gravity Urine 1.006 (1.000-1.030); Urobilinogen Urine Negative (Negative)
[2021-12-05 07:44] LABS: Basophils # (auto) 0.03 K/uL (0-0.2); Basophils % (auto) 0.4 %; Eosinophils # (auto) 0.03 K/uL (0-0.50); Eosinophils % (auto) 0.4 %; Hematocrit (blood only) 39.6 % (34.1-44.9); Hemoglobin 14.3 g/dl (12.0-16.0); Immature Granulocytes # (auto) 0.03 K/uL (0.00-0.02); Immature Granulocytes % (auto) 0.4 %; Lymphocytes # (auto) 2.38 K/uL (1.2-3.4); Lymphocytes % (auto) 30.9 %; Mean Corpuscular Hemoglobin 32.4 pg (25.0-34.0); Mean Corpuscular Hgb Conc 36.1 g/dL (32.0-36.0); Mean Corpuscular Volume 89.6 fL (80.0-100.0); Mean Platelet Volume 8.9 fL (9.4-12.3); Monocytes # (auto) 0.55 K/uL (0.24-0.82); Monocytes % (auto) 7.1 %; Neutrophils # (auto) 4.68 K/uL (1.4-6.5); Neutrophils % (auto) 60.8 %; Platelet Count 280 K/uL (130-400); RDW Coefficient of Variation 13.2 % (11.5-14.5); RDW Standard Deviation 43.2 fL (36.4-46.3); Red Blood Count 4.42 M/uL (3.93-5.22)
[2021-12-05 08:09] LABS: Albumin Globulin Ratio 1.5 (0.9-2); Albumin Level 4.4 gm/dl (3.4-5.0); BUN Creatinine Ratio 15.7 (10-20); Bilirubin,Total 0.7 mg/dl (0.2-1.0); Calcium 9.4 mg/dl (8.5-10.1); Est GFR (African American) 74.3 ml/min; Est GFR (Non-African American) 64.1 ml/min; Total Protein 7.4 gm/dl (6.0-8.3)
[2021-12-05 08:14] LABS: Amphetamines+Metham, Urine Pos (Neg); Barbiturates, Urine Neg (Neg); Benzodiazepine, Urine Neg (Neg); Cocaine, Urine Neg (Neg); MDMA (Ecstacy), Urine Neg (Neg); Methadone, Urine Neg (Neg); Opiate, Urine Neg (Neg); Phencyclidine, Urine Neg (Neg)
[2021-12-05 08:15] LABS: Pregnancy Test, Serum Negative (Negative)
[2021-12-05 08:42] LABS: Acetaminophen < 3 ug/ml (10-30); Salicylate < 3.0 mg/dl (3.0-30)
[2021-12-05] MEDS ORDERED: POTASSIUM CHLORIDE CRTAB 20 MEQ TABCR PO STA (08:48)
[2021-12-05] MEDS ORDERED: SODIUM CHLORIDE 0.9% 500 ML IV SCH (10:45)
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
[2021-12-05] MEDS ORDERED: LACTATED RINGER'S 1,000 ML IV SCH (11:48)
--- NOTE | 2021-12-05 12:01 | Communication Note ---
Date of Service: December 05, 2021 consult request received, chart briefly reviewed, presentation sounds manic due to meth, would suggest holding Cymbalta due to will (although may also be somewhat of a contributor to low sodium). If needs prn Ativan may work better than antipsychotics given meth-induced. full consult to follow
[2021-12-05] MEDS: IBUPROFEN 200 MG TAB PO PRN (12:34)
[2021-12-05] MEDS: ACETAMINOPHEN 325 MG TAB PO PRN ×2 (13:30→17:57)
[2021-12-05] MEDS: GABAPENTIN 400 MG CAP PO SCH ×2 (13:31→21:35)
[2021-12-05 13:35] LABS: BUN Creatinine Ratio 16.4 (10-20); Calcium 9.1 mg/dl (8.5-10.1); Creatinine Clr Calc Pharmacy 43.8 ml/min; Est GFR (African American) 63.6 ml/min; Est GFR (Non-African American) 54.9 ml/min; Potassium 3.7 mmol/L (3.5-5.1)
--- NOTE | 2021-12-05 13:52 | XRay Report ---
XR ankle LT min 3V routine, XR foot RT 2V CLINICAL HISTORY: Left ankle and foot pain. No history of injury. COMPARISON STUDY: No previous studies for comparison. TECHNIQUE: 2 left foot and 3 left ankle views FINDINGS: Bones: There is no evidence for an acute fracture or dislocation. There is nonperfusion of the distal fibular growth plate characteristic of developmental anomaly. There is no lytic or blastic lesion. Joints: There is mild to moderate narrowing of the first MTP joint. The remaining joint spaces of the ankle and foot are intact. The bones are in anatomic alignment. Soft tissues: There is no focal soft tissue abnormality. There is no radiopaque foreign body. IMPRESSION: 1. No acute osseous pathology. 2. Mild degenerative changes. ACT 112: Negative or not required by law. Electronically signed by: Kye Dougherty M.D. 12/05/2021 1:51 PM
[2021-12-05] MEDS: LORazepam 1 MG TAB PO PRN (14:36)
[2021-12-05] MEDS: LIDOCAINE 5% 1 PATCH TD SCH (15:29)
[2021-12-05] MEDS ORDERED: CYCLOBENZAPRINE HCL 5 MG TAB PO ONE (15:36)
[2021-12-05] MEDS: DICLOFENAC SOD 1% GEL 100 GM TUBE EXT SCH ×2 (17:57→21:36)
--- NOTE | 2021-12-05 18:59 | CT Scan Report ---
CT lumbar spine wo con CLINICAL HISTORY: h/o back surgery x 2; pain; eval hardware, etc COMPARISON STUDY: No previous studies for comparison. CT DOSE: 410.86 mGy.cm TECHNIQUE: Standard CT of the Lumbar Spine was performed without IV contrast. A dose lowering techni que was utilized adhering to the principles of ALARA. FINDINGS: Bones: The bones are osteopenic. The patient is status post interpedicular screw and eliza fixation at L4-5 with grade 1/4 spondylolisthesis of L4 on L5. Disc spacers also in place. There is no evidence f or an acute fracture or malalignment. The heights of the vertebral bodies are maintained. The vertebr al bodies are in anatomic alignment. There is a hemangioma of the T12 vertebral body. Disc spaces: There is marked disc space narrowing at L3-4 with subchondral sclerosis and Schmorl's no lito present. Diffuse bulging of the annulus is present. Thickening of ligamentum flavum is also prese nt bilaterally and in the combination of these findings produce moderate central canal stenosis. Ther e is also evidence for bilateral foraminal stenosis. Facet joints: Degenerative facet joint disease is present particularly at L3-4. The sacroiliac joints are intact bilaterally. Soft tissues: The prevertebral soft tissues are within normal limits. IMPRESSION: 1. Degenerative disc and degenerative facet joint disease with moderate central canal stenosis at L3- 4. 2. Intact internal fixation at L4-5. ACT 112: Negative or not required by law. Electronically signed by: Kye Dougherty M.D. 12/05/2021 6:57 PM
[2021-12-05] MEDS: NICOTINE 7 MG/24 HR TDSY TD SCH (21:20)
[2021-12-05] MEDS: LORazepam 1 MG TAB PO SCH (21:35)
[2021-12-05] MEDS: ACETAMINOPHEN 500 MG TAB PO SCH (21:35)
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
[2021-12-06] MEDS: IBUPROFEN 200 MG TAB PO PRN ×2 (01:13→08:16)
[2021-12-06] MEDS: LORazepam 1 MG TAB PO PRN (01:22)
[2021-12-06] MEDS ORDERED: MoRPHine SULFATE 2 MG/ML CARP IV STA (01:57)
[2021-12-06] MEDS ORDERED: MoRPHine SULFATE 5 MG/0.25 ML UDP PO ONE (01:58)
[2021-12-06] MEDS: GABAPENTIN 400 MG CAP PO SCH (08:16)
[2021-12-06] MEDS: LORazepam 1 MG TAB PO SCH (08:16)
[2021-12-06] MEDS: NICOTINE 7 MG/24 HR TDSY TD SCH (08:16)
[2021-12-06] MEDS: DICLOFENAC SOD 1% GEL 100 GM TUBE EXT SCH ×2 (08:17→12:36)
[2021-12-06] MEDS: ACETAMINOPHEN 500 MG TAB PO SCH (08:23)
[2021-12-06] MEDS: LIDOCAINE 5% 1 PATCH TD SCH (08:37)
[2021-12-06] MEDS ORDERED: DULoxetine HCL 60 MG CAP PO SCH (09:00)
[2021-12-06] MEDS ORDERED: OMEGA-3 (PURIFIED FISH OIL) 1 GM CAP PO SCH (09:00)
[2021-12-06 10:54] VITALS: PULSE 84; TEMP 98.1; O2SAT 96
[2021-12-06 11:08] VITALS: BP 119/78
[2021-12-06] MEDS ORDERED: CYCLOBENZAPRINE HCL 5 MG TAB PO STA (11:23)
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
--- NOTE | 2021-12-06 12:21 | Psychiatric Consultation ---
Date of Consultation December 06, 2021 Psych History Chief Complaint "[]". History of Present Illness I spoke with liaison last pm as patient was attempting to leave AMA after making pretty dramatic statements about self harm due to ongoing agitation from recent meth, likely will, and feeling her chronic pain needs werent' being met. A warrant was obtained and Dr. Solano cleared for 302 bed search. Patient had expressed a preference for [facility] and was accepted for transport today at noon. Patient is discharging before full consult can be completed. Allergies Allergy/AdvReac Type Severity Reaction Status Date / Time No Known Allergies Allergy Verified 12/05/21 08:10 Home Medications Medication Instructions Recorded Confirmed Type ibuprofen 200 mg tablet 200 mg PO Q6H PRN Pain 12/08/20 12/05/21 History duloxetine 60 mg capsule,delayed 60 mg PO QAM 02/26/21 12/05/21 History release (Cymbalta) gabapentin 300 mg capsule 800 mg PO TID 03/25/21 12/05/21 History garlic 300 mg capsule 300 mg PO DAILY 03/25/21 12/05/21 History omega-3 fatty acids 1,000 mg 1,000 mg PO DAILY 03/25/21 12/05/21 History capsule (Fish Oil Concentrate) vitamin E 200 unit capsule 200 unit PO DAILY 03/25/21 12/05/21 History Personal History Beliefs That Will Affect Care: None Patient History Medical History Anxiety and depression Back pain with history of spinal surgery Bipolar 1 disorder Bruxism (teeth grinding) Bulging discs Chronic low back pain Chronic SI joint pain Degenerative disc disease Fibromyalgia History of migraine OCD (obsessive compulsive disorder) Osteoarthritis Osteoporosis Palpitations PTSD (post-traumatic stress disorder) Radiculitis Witnessed apneic spells witnessed sleep apnea but pt has not been tested Surgical History History of back surgery x 2 History of x2 History of D&C History of tubal ligation Family History Other No family history of adverse response to anesthesia Social History (Reviewed 12/05/21 @ 11:27 by JARRETT Garcia Smoking Status: Current every day smoker Tobacco Type: Cigarettes Cigarettes Per Day: 5; Second Hand Exposure: No; Hx Alcohol Use: Yes Alcohol type: beer Hx Substance Use: No Preferred Language: Yoruba Communication Ability: Effective Boatswains Mate Required: No Beliefs That Will Affect Care: None Current Living Situation: Significant Other Current Living Situation Comment: Being evicted Other Information That Helps Us Care for You: No Feels Safe at Home: Declines to Answer and Hesitant to Answer Assistive Devices: None Physical Exam Vital Signs (Past 24 Hours): Last Vital Signs Temp 36.7 C 12/06/21 11:05 Pulse 84 12/06/21 11:05 Resp 16 12/06/21 11:05 BP 119/78 12/06/21 11:05 Pulse Ox 96 12/06/21 11:05 O2 Del Method 12/06/21 10:54 Results & Data (PSY) Medications Administered Acetaminophen (Acetaminophen 325 Mg Tab) 650 mg PO Q4H PRN PRN Reason: Pain or Fever Stop: 01/04/22 11:47 Last Admin: 12/05/21 17:57 Dose: 650 mg Documented By: JOSE ANGEL Admin: 12/05/21 13:30 Dose: 650 mg Documented By: JOSE ANGEL Acetaminophen (Acetaminophen 500 Mg Tab) 1,000 mg PO TID [facility] [place] Stop: 01/04/22 21:14 Last Admin: 12/06/21 08:23 Dose: 1,000 mg Documented By: Admin: 12/05/21 21:35 Dose: 1,000 mg Documented By: MEMO Diclofenac Sodium (Diclofenac Sod 1% Gel 100 Gm Tube) 2 gm EXT QID [facility] [place]; Protocol Stop: 01/04/22 16:59 Last Admin: 12/06/21 08:17 Dose: 2 gm Documented By: Admin: 12/05/21 21:36 Dose: 2 gm Documented By: Admin: 12/05/21 17:57 Dose: 2 gm Documented By: JOSE ANGEL Fish Oil (Black Earth-3 (Purified Fish Oil) 1 Gm Cap) 1 gm PO DAILY [facility] [place] Stop: 01/05/22 08:59 Last Admin: 12/06/21 08:16 Dose: 1 gm Documented By: ANASTASIA Gabapentin (Gabapentin 400 Mg Cap) 800 mg PO TID [facility] [place] Stop: 01/04/22 13:59 Last Admin: 12/06/21 08:16 Dose: 800 mg Documented By: Admin: 12/05/21 21:35 Dose: 800 mg Documented By: Admin: 12/05/21 13:31 Dose: 800 mg Documented By: JOSE ANGEL Ibuprofen (Ibuprofen 200 Mg Tab) 200 mg PO Q6H PRN PRN Reason: Pain Stop: 01/04/22 11:47 Last Admin: 12/06/21 08:16 Dose: 200 mg Documented By: Admin: 12/06/21 01:13 Dose: 200 mg Documented By: Admin: 12/05/21 12:34 Dose: 200 mg Documented By: JOSE ANGEL Lidocaine (Lidocaine 5% 1 Patch) 1 patch TD QAM [facility] [place] Stop: 01/04/22 14:59 Last Admin: 12/06/21 08:37 Dose: 1 patch Documented By: Admin: 12/05/21 15:29 Dose: 1 patch Documented By: JOSE ANGEL Lorazepam (Lorazepam 1 Mg Tab) 1 mg PO BID [facility] [place] Stop: 01/04/22 20:59 Last Admin: 12/06/21 08:16 Dose: 1 mg Documented By: Admin: 12/05/21 21:35 Dose: 1 mg Documented By: MEMO Lorazepam (Lorazepam 1 Mg Tab) 1 mg PO Q8 PRN PRN Reason: anxiety, agitation Stop: 01/04/22 11:57 Last Admin: 12/06/21 01:22 Dose: 1 mg Documented By: Admin: 12/05/21 14:36 Dose: 1 mg Documented By: JOSE ANGEL Miscellaneous (Remove Lidoderm Patch) 1 each N/A DAILY@2100 [facility] [place] Stop: 01/04/22 20:59 Last Admin: 12/05/21 21:35 Dose: 1 each Documented By: MEMO Miscellaneous (Remove Nicoderm Patch) 1 each N/A DAILY@0859 [facility] [place] Stop: 01/05/22 08:58 Last Admin: 12/06/21 07:40 Dose: 1 each Documented By: ANASTASIA Nicotine (Nicotine 7 Mg/24 Hr Tdsy) 7 mg TD QAM [facility] [place] Stop: 01/04/22 17:59 Last Admin: 12/06/21 08:16 Dose: 7 mg Documented By: Admin: 12/05/21 21:20 Dose: 7 mg Documented By: DPK Coding Level of Care Code None
[2021-12-08 00:32] LABS: Amphetamine Urine, Confirm NEGATIVE ng/mL (<250); Methamphetamine, Ur Confirm 2010 ng/mL (<250)
== END 2021-12-06 13:06 ==
LOC: ED 06:29 → 2N 10:52 → SUATTDRO 10:52 → INTOOBSV 10:52 → 2N 11:48
DX: R45.851 Suicidal ideations; G89.29 Other chronic pain; F17.210 Nicotine dependence, cigarettes, uncomplicated; E87.6 Hypokalemia; F15.20 Other stimulant dependence, uncomplicated; Z79.899 Other long term (current) drug therapy; L98.9 Disorder of the skin and subcutaneous tissue, unspecified; E87.1 Hypo-osmolality and hyponatremia; M54.50 Low back pain, unspecified; M25.572 Pain in left ankle and joints of left foot